=== PATIENT | female | born 1955 | race Caucasian/White ===

== ENCOUNTER 2019-07-05 12:15 | Emergency (ER) | payer OTHER, SELFPAY ==
--- OUTSIDE RECORDS SUMMARY | 2019-07-05 12:17 | XMS REPORT ---
:1955 Author Organization eClinicalWorks Care Team Providers Name Role Phone Nena Martinez Provider Role Unavailable Allergies No Known Allergies Problems Problem Type Condition Code Onset Dates Condition Status Problem History of CVA (cerebrovascular Z86.73 Active accident) Problem Mixed hyperlipidemia E78.2 Active Problem Screening for osteoporosis Z13.820 Active Problem History of stroke Z86.73 Active Problem Screening for breast cancer Z12.39 Active Problem Depression F32.9 Active Problem HTN (hypertension) I10 Active Problem Encounter for general adult medical Z00.00 Active examination without abnormal findings Problem Diabetes E11.9 Active Medications No Known Medications Results No Known Results Summary Purpose eClinicalPlastio Submission
--- OUTSIDE RECORDS SUMMARY | 2019-07-05 12:17 | XMS REPORT ---
:1955 Author Organization eClinicalWorks Care Team Providers Name Role Phone Nena Martinez Provider Role Unavailable Allergies No Known Allergies Problems Problem Type Condition Code Onset Dates Condition Status Problem History of CVA (cerebrovascular Z86.73 Active accident) Problem Mixed hyperlipidemia E78.2 Active Assessment HTN (hypertension) I10 Active Problem Screening for osteoporosis Z13.820 Active Problem History of stroke Z86.73 Active Problem Screening for breast cancer Z12.39 Active Problem Depression F32.9 Active Problem HTN (hypertension) I10 Active Problem Encounter for general adult medical Z00.00 Active examination without abnormal findings Problem Diabetes E11.9 Active Medications Medication Code Code Instructions Start End Status Dosage System Date Date Duloxetine HCl [facility] 06458809525 60 MG Orally Active 1 capsule Once a day Lisinopril [facility] 74078191331 20 MG Orally Active 1 tablet Twice a day Results No Known Results Summary Purpose eClinicalWorks Submission
--- OUTSIDE RECORDS SUMMARY | 2019-07-05 12:17 | XMS REPORT ---
[...] Medications Results No Known Results Summary Purpose eClinicalTribeHired Submission
--- OUTSIDE RECORDS SUMMARY | 2019-07-05 12:17 | XMS REPORT ---
:1955 Author Organization eClinicalWorks Care Team Providers Name Role Phone Nean Martinez Provider Role Unavailable Allergies, Adverse Reactions, Alerts Substance Reaction Event Type statin N/V Drug Allergy Problems Problem Type Condition Code Onset Dates Condition Status Problem History of CVA (cerebrovascular Z86.73 Active accident) Problem Mixed hyperlipidemia E78.2 Active Assessment Encounter for immunization Z23 Active Problem Screening for osteoporosis Z13.820 Active Problem History of stroke Z86.73 Active Problem Screening for breast cancer Z12.39 Active Problem Depression F32.9 Active Problem HTN (hypertension) I10 Active Problem Encounter for general adult medical Z00.00 Active examination without abnormal findings Problem Diabetes E11.9 Active Medications Medication Code Code Instructions Start End Status Dosage System Date Date Lisinopril [facility] 78524739297 20 MG Orally Active 1 tablet Twice a day Duloxetine HCl [facility] 62686032551 60 MG Orally Active 1 capsule Once a day Tradjenta [facility] 81181783191 5 MG Orally October 29, Active 1 tablet Once a day 2018 Tresiba [facility] 25363903414 200 UNIT/ML Dec 19, Active 40 units FlexTouch Subcutaneous 2019 daily Rosuvastatin ND 14804387712 20 MG Orally Dec 19, Active 1 tablet Calcium Once a day 2019 Results No Known Results Summary Purpose eClinicalWorks Submission
--- OUTSIDE RECORDS SUMMARY | 2019-07-05 12:17 | XMS REPORT ---
:1955 Author Organization eClinicalWorks Care Team Providers Name Role Phone Nena Martinez Provider Role Unavailable Allergies, Adverse Reactions, Alerts Substance Reaction Event Type statin N/V Drug Allergy Problems Problem Type Condition Code Onset Dates Condition Status Problem History of CVA (cerebrovascular Z86.73 Active accident) Problem Mixed hyperlipidemia E78.2 Active Assessment HTN (hypertension) I10 Active Assessment Diabetes E11.9 Active Problem Screening for osteoporosis Z13.820 Active Problem History of stroke Z86.73 Active Problem Screening for breast cancer Z12.39 Active Problem Depression F32.9 Active Problem HTN (hypertension) I10 Active Problem Encounter for general adult medical Z00.00 Active examination without abnormal findings Problem Diabetes E11.9 Active Medications Medication Code Code Instructions Start End Status Dosage System Date Date Tradjenta [facility] 53848992442 5 MG Orally October 29, Active 1 tablet Once a day 2018 Duloxetine HCl [facility] 48332972375 60 MG Orally Active 1 capsule Once a day Tresiba ND 82806259147 200 UNIT/ML Dec 19, Active 40 units FlexTouch Subcutaneous 2019 daily Lisinopril [facility] 72041796881 20 MG Orally Active 1 tablet Twice a day Rosuvastatin ND 30968612657 20 MG Orally Dec 19, Active 1 tablet Calcium Once a day 2019 Results No Known Results Summary Purpose eClinicalWorks Submission
[2019-07-05 12:59] LABS: Absolute Lymphocytes (CBC) 1.9 K/uL (0.7-4.9); Basophils % 0.7 % (0-1.3); Hematocrit 37.6 % (36.0-45.0); Lymphocytes % 21.5 % (15.3-44.8); MPV 7.3 fL (7.6-11.3); RBC Red Blood Cell Count 4.25 M/uL (3.86-4.86)
[2019-07-05 13:12] LABS: BUN Blood Urea Nitrogen 15 mg/dL (7-18); Bicarbonate 27 mmol/L (21-32); Glucose Level 289 mg/dL (74-106); Potassium 3.9 mmol/L (3.5-5.1); Sodium Level 136 mmol/L (136-145); Troponin (Emerg Dept Use Only) < 0.02 ng/mL (0.0-0.045)
--- NOTE | 2019-07-05 13:15 | RAD REPORT ---
EXAM DESCRIPTION: CT - Ct Stroke Brain Wo Cont - 07/05/2019 12:52 pm CLINICAL HISTORY: numbness, hemianopsia, left-sided symptoms, history of hypertension and prior CVA COMPARISON: Head Brain Wo Cont dated 02/28/2017 TECHNIQUE: Axial 5 millimeter thick images of the head were obtained without IV contrast. All CT scans are performed using dose optimization technique as appropriate and may include automated exposure control or mA/KV adjustment according to patient size. FINDINGS: No intracranial hemorrhage, mass, or cerebral edema. Diminished attenuation is present in the medial right occipital lobe. This would be compatible with CVA related visual field defects. Echo ent has a baseline mild atrophy matching comparison. Chronic ischemic changes also present. Elsewhere smith matter white matter differentiation is preserved. No globe or orbital content abnormality. Visualized portions of the mastoid air cells, paranasal sinuses, and orbits are unremarkable. Findings telephoned to the referring physician 1310 hours. IMPRESSION: Acute nonhemorrhagic infarction in the medial right occipital lobe. This is approximatel y 3 x 1.5 cm in size. There is no significant edema or mass effect from this CVA. Patient has atrophy, chronic ischemic change and old infarction changes that match comparison.
--- NOTE | 2019-07-05 13:29 | ER ---
Nurse's Notes [facility] Name: Rosaline Casey Age: 63 yrs Sex: Female : 1955 Arrival Date: 07/05/2019 Time: 12:24 Bed 20 Private MD: Diagnosis: Acute, nonhemorrhagic, right occipital cerebral infarction;Visual field defects;Paresthesia of skin Presentation: 07/05 12:12 Presenting complaint: EMS states: Pt. is A \T\ O x 4, SCS 15. C/o numbness to the left rb1 side of her face and left hand. Vision is blurred in the left eye. History of diabetes, HTN, CVA, neuropathy. She is hypertensive, reports being out of her Lisinopril for a while and just got a prescription again. BS 313, reports that she had chocolate milk this morning, SR on 12-Lead. 12:12 Transition of care: patient was not received from another setting of care. Onset of rb1 symptoms was July 04, 2019. Risk Assessment: Do you want to hurt yourself or someone else? Patient reports no desire to harm self or others. 12:12 Method Of Arrival: EMS: [facility] rb1 12:12 Acuity: FARIHA 3 rb1 12:12 Care prior to arrival: None. rb1 12:12 Initial Sepsis Screen: Does the patient meet any 2 criteria? No. Patient's initial rb1 sepsis screen is negative. Does the patient have a suspected source of infection? No. Patient's initial sepsis screen is negative. Triage Assessment: 12:12 General: Appears in no apparent distress. comfortable, Behavior is calm, cooperative, rb1 Denies fever. Pain: Denies pain. Neuro: Level of Consciousness is awake, alert, obeys commands, Oriented to person, place, time, situation, Recruiting Associate are equal bilaterally Moves all extremities. Gait is unsteady, According to pt. report. Speech is normal, Facial symmetry appears normal, Pupils are PERRLA, Reports blurred vision in left eye since 1300 yesterday numbness in left side of face and left hand. Cardiovascular: Capillary refill < 3 seconds is brisk in bilateral fingers. Respiratory: Airway is patent Respiratory effort is even, unlabored, Respiratory pattern is regular, symmetrical, Denies cough, shortness of breath. GI: No signs and/or symptoms were reported involving the gastrointestinal system. : No signs and/or symptoms were reported regarding the genitourinary system. Derm: Skin is pink, warm \T\ dry. Musculoskeletal: Range of motion: intact in all extremities. Historical: - Allergies: 12:12 No Known Allergies; rb1 - Home Meds: 12:12 glimepiride 2 mg Oral tab 1 tab once daily [Active]; labetalol Oral daily [Active]; rb1 lisinopril Oral 1 tab once daily [Active]; Insulin [Active]; - PMHx: 12:12 Diabetes - NIDDM; Hypertension; rb1 - PSHx: 12:12 ; Cholecystectomy; Hysterectomy; rb1 - Immunization history:: Adult Immunizations up to date. - Coronavirus screen:: The patient has NOT traveled to [place] in the past 14 days. The patient has NOT had contact with known/suspected case of Coronavirus?. - Social history:: Smoking status: Patient/guardian denies using. - Family history:: not pertinent. - Ebola Screening: : Patient negative for fever greater than or equal to 101.5 degrees Fahrenheit, and additional compatible Ebola Virus Disease symptoms. - Hospitalizations: : No recent hospitalization is reported. Screenin:12 Abuse screen: Denies threats or abuse. Nutritional screening: No deficits noted. rb1 Tuberculosis screening: No symptoms or risk factors identified. 12:12 Fall Risk No fall in past 12 months (0 pts). Secondary diagnosis (15 points) CVA, IV rb1 access (20 points). Ambulatory Aid- None/Bed Rest/Nurse Assist (0 pts). Gait- Normal/Bed Rest/Wheelchair (0 pts) Mental Status- Oriented to own ability (0 pts). Total Julio Fall Scale indicates Low Risk Score (25-44 pts). Fall prevention measures have been instituted. Side Rails Up X 2 Placed close to Nursing Station 1:1 attendant Assigned to Pt. Frequent Obs/Assesments occuring As available Patient and Family Educated on Fall Prevention Program and strategies. 12:12 VAN Screening: Arm Drift: Patient shows no arm weakness. Patient is VAN negative. rb1 12:44 Patient has been NPO before screening. The patient is alert, able to follow commands. rb1 The patient does not exhibit slurred or garbled speech The patient is not exhibiting difficulty speaking. The patient does not exhibit difficulty understanding words. The patient is able to swallow own secretions with no drooling or need for suction. Patient tolerated one teaspoon of water. No drooling, immediate coughing, gurgling, or clearing of the throat was noted. The patient tolerated 90mL of water. No drooling, immediate coughing, gurgling, or clearing of the throat was noted. The patient passed the bedside swallow screening. Oral medications may be given as ordered. Contact Physician for further diet orders. Provider notified of bedside swallow screening results: Bassam La MD. Assessment: 12:12 General: See triage assessment. rb1 13:10 Reassessment: Patient appears in no apparent distress at this time. Patient and/or rb1 family updated on plan of care and expected duration. Pain level reassessed. Patient is alert, oriented x 3, equal unlabored respirations, skin warm/dry/pink. Patient denies pain at this time. 14:09 Reassessment: Patient appears in no apparent distress at this time. No changes from rb1 previously documented assessment. Friends at the bedside. Patient denies pain at this time. 14:16 Reassessment: Called report to CAPRICE Dubon at [facility]. Information from the [facility] was rb1 given. All questions asked and answered. 15:00 Reassessment: Patient appears in no apparent distress at this time. Patient and/or rb1 family updated on plan of care and expected duration. Pain level reassessed. Patient is alert, oriented x 3, equal unlabored respirations, skin warm/dry/pink. Patient denies pain at this time. 16:00 Reassessment: Patient appears in no apparent distress at this time. No changes from rb1 previously documented assessment. Patient is alert, oriented x 3, equal unlabored respirations, skin warm/dry/pink. Pt. is laughing and talking with EMS. Vital Signs: 12:12 BP 172 / 77; Pulse 81; Resp 17; Temp 98.3(O); Pulse Ox 100% on R/A; Weight 79.38 kg rb1 (R); Height 5 ft. 2 in. (157.48 cm) (R); Pain 0/10; 13:10 BP 168 / 79; Pulse 79; Resp 18; Pulse Ox 100% on R/A; Pain 0/10; rb1 14:06 BP 166 / 81; Pulse 73; Resp 17; Temp 98.3(O); Pulse Ox 99% on R/A; Pain 0/10; rb1 15:00 BP 169 / 89; Pulse 71; Resp 15; Pulse Ox 98% ; rb1 15:57 BP 149 / 81; Pulse 68; Resp 12; Pulse Ox 97% on R/A; rb1 12:12 Body Mass Index 32.01 (79.38 kg, 157.48 cm) rb1 Trauma Score (Adult): 12:15 Eye Response: spontaneous(1); Verbal Response: oriented(1); Motor Response: obeys rb1 commands(2); Systolic BP: > 89 mm Hg(4); Respiratory Rate: 10 to 29 per min(4); Conway Score: 15; Trauma Score: 12 12:30 Eye Response: spontaneous(1); Verbal Response: oriented(1); Motor Response: obeys rb1 commands(2); Systolic BP: > 89 mm Hg(4); Respiratory Rate: 10 to 29 per min(4); Racheal Score: 15; Trauma Score: 12 12:45 Eye Response: spontaneous(1); Verbal Response: oriented(1); Motor Response: obeys rb1 commands(2); Systolic BP: > 89 mm Hg(4); Respiratory Rate: 10 to 29 per min(4); Conway Score: 15; Trauma Score: 12 13:00 Eye Response: spontaneous(1); Verbal Response: oriented(1); Motor Response: obeys rb1 commands(2); Systolic BP: > 89 mm Hg(4); Respiratory Rate: 10 to 29 per min(4); Conway Score: 15; Trauma Score: 12 13:15 Eye Response: spontaneous(1); Verbal Response: oriented(1); Motor Response: obeys rb1 commands(2); Systolic BP: > 89 mm Hg(4); Respiratory Rate: 10 to 29 per min(4); Conway Score: 15; Trauma Score: 12 14:15 Eye Response: spontaneous(1); Verbal Response: oriented(1); Motor Response: obeys rb1 commands(2); Systolic BP: > 89 mm Hg(4); Respiratory Rate: 10 to 29 per min(4); Conway Score: 15; Trauma Score: 12 15:15 Eye Response: spontaneous(1); Verbal Response: oriented(1); Motor Response: obeys rb1 commands(2); Systolic BP: > 89 mm Hg(4); Respiratory Rate: 10 to 29 per min(4); Racheal Score: 15; Trauma Score: 12 16:00 Eye Response: spontaneous(1); Verbal Response: oriented(1); Motor Response: obeys rb1 commands(2); Systolic BP: > 89 mm Hg(4); Respiratory Rate: 10 to 29 per min(4); Racheal Score: 15; Trauma Score: 12 NIH Stroke Scale Scores: 12:12 NIHSS Score: 2 rb1 ED Course: 12:12 Arm band placed on right wrist. rb1 12:12 Patient has correct armband on for positive identification. Bed in low position. Call rb1 light in reach. Side rails up X2. ekg monitor tech on. Pulse ox on. NIBP on. Warm blanket given. 12:24 Patient arrived in ED. rn 12:24 Bassam La MD is Attending Physician. rn 12:24 Maintain EMS IV. Dressing intact. Good blood return noted. Site clean \T\ dry. Gauge \T\ rb 1 site: 20 G L AC. 12:27 Tami Castellanos, RN is Primary Nurse. rb1 12:31 Triage completed. rb1 12:38 EKG done, by ED staff, reviewed by Bassam La MD. em1 12:53 CT completed. Patient tolerated procedure well. Patient moved back from CT. mw3 16:02 No provider procedures requiring assistance completed. Patient transferred, IV remains rb1 in place. Administered Medications: 13:56 Drug: PlaVIX 75 mg Route: PO; rb1 14:22 Follow up: Response: No adverse reaction rb1 Outcome: 13:26 ER care complete, transfer ordered by . rn 16:02 Transferred by ground EMS to [facility], Transfer form completed. rb1 16:02 Condition: stable 16:02 Instructed on the need for transfer. 16:06 Patient left the ED. rb1 NIH Stroke Scale - NIH Stroke Score Date: 07/05/2019 Time: 12:12 Total Score = 2 1a. Level of Consciousness (LOC) - 0(Alert) 1b. Level of Consciousness (LOC) (Year \T\ Age) - 0(Both) 1c. LOC Commands (Open \T\ Closes Eyes/Emergency Department Coordinator) - 0(Both) 2. Best Gaze (Lateral Gaze Paresis) - 0(Normal) 3. Visual Field Loss - 1(Partial hemianopia) 4. Facial Palsy - 0(Normal) 5a. Left Arm: Motor (10-second hold) - 0(No drift) 5b. Right Arm: Motor (10-second hold) - 0(No drift) 6a. Left Leg: Motor (5-second hold - always test supine) - 0(No drift) 6b. Right Leg: Motor (5-second hold - always test supine) - 0(No drift) 7. Limb Ataxia (finger/nose \T\ heel/clark - test with eyes open) - 0(Absent) 8. Sensory Loss (pinprick arms/legs/face) - 1(Mild to moderate loss) 9. Best Language: Aphasia (description/naming/reading) - 0(No aphasia) 10. Dysarthria (speech clarity - read or repeat words) - 0(Normal) 11. Extinction and Inattention (visual/tactile/auditory/spatial/personal) - 0(No abnormality) Initials: rb1 Signatures: Bassam aL MD MD rn Martinez, Eric em1 Tami Castellanos, RN RN rb1 Whitney Christensen mw3
--- NOTE | 2019-07-05 13:29 | EDPHYS ---
Physician Documentation [facility] Name: Rosaline Casey Age: 63 yrs Sex: Female : 1955 Arrival Date: 07/05/2019 Time: 12:24 Bed 20 Private MD: ED Physician Bassam La HPI: 07/05 13:16 This 63 yrs old Female presents to ER via EMS with complaints of Left sided rn numbness, vision problem. 13:16 The patient presents to the emergency department with paresthesias of the a vision rn problem, left visual field loss. Onset: The symptoms/episode began/occurred yesterday. Context:. Associated signs and symptoms: Pertinent positives: headache, visual field changes. Severity of symptoms: At their worst the symptoms were mild in the emergency department the symptoms are unchanged. The patient has experienced a previous episode. Reports CVA in past, does not take any blood thinners and has run out of her BP medication recently, presents with left upper/outer visual field defect and left sided numbness. Onset 1300 yesterday. . Historical: - Allergies: 12:12 No Known Allergies; rb1 - Home Meds: 12:12 glimepiride 2 mg Oral tab 1 tab once daily [Active]; labetalol Oral daily [Active]; rb1 lisinopril Oral 1 tab once daily [Active]; Insulin [Active]; - PMHx: 12:12 Diabetes - NIDDM; Hypertension; rb1 - PSHx: 12:12 ; Cholecystectomy; Hysterectomy; rb1 - Immunization history:: Adult Immunizations up to date. - Coronavirus screen:: The patient has NOT traveled to [place] in the past 14 days. The patient has NOT had contact with known/suspected case of Coronavirus?. - Social history:: Smoking status: Patient/guardian denies using. - Family history:: not pertinent. - Ebola Screening: : Patient negative for fever greater than or equal to 101.5 degrees Fahrenheit, and additional compatible Ebola Virus Disease symptoms. - Hospitalizations: : No recent hospitalization is reported. ROS: 13:16 Constitutional: Negative for fever, chills, and weight loss, Eyes: + left upper outer rn visual field deficit Neck: Negative for injury, pain, and swelling, Cardiovascular: Negative for chest pain, palpitations, and edema, Respiratory: Negative for shortness of breath, cough, wheezing, and pleuritic chest pain, Abdomen/GI: Negative for abdominal pain, nausea, vomiting, diarrhea, and constipation, MS/Extremity: Negative for injury and deformity, Skin: Negative for injury, rash, and discoloration, Neuro: + numbness left side of body, no weakness Exam: 13:16 Constitutional: This is a well developed, well nourished patient who is awake, alert, rn and in no acute distress. Head/Face: Normocephalic, atraumatic. Eyes: Pupils equal round and reactive to light, extra-ocular motions intact. + left upper outer visual field deficit, + LUE/LLE decreased sensation to sharp/painful touch. 5/5 strength throughout. Cardiovascular: Regular rate and rhythm. No pulse deficits. Respiratory: No increased work of breathing, no retractions or nasal flaring. Abdomen/GI: Soft, non-tender, with normal bowel sounds. No distension or tympany. No guarding or rebound. No evidence of tenderness throughout. MS/ Extremity: Pulses equal, no cyanosis. Neurovascular intact. Full, normal range of motion. Equal circumference. Neuro: Awake and alert, GCS 15, oriented to person, place, time, and situation. Motor strength 5/5 in all extremities. Vital Signs: 12:12 BP 172 / 77; Pulse 81; Resp 17; Temp 98.3(O); Pulse Ox 100% on R/A; Weight 79.38 kg rb1 (R); Height 5 ft. 2 in. (157.48 cm) (R); Pain 0/10; 13:10 BP 168 / 79; Pulse 79; Resp 18; Pulse Ox 100% on R/A; Pain 0/10; rb1 14:06 BP 166 / 81; Pulse 73; Resp 17; Temp 98.3(O); Pulse Ox 99% on R/A; Pain 0/10; rb1 15:00 BP 169 / 89; Pulse 71; Resp 15; Pulse Ox 98% ; rb1 15:57 BP 149 / 81; Pulse 68; Resp 12; Pulse Ox 97% on R/A; rb1 12:12 Body Mass Index 32.01 (79.38 kg, 157.48 cm) rb1 NIH Stroke Scale Scores: 12:12 NIHSS Score: 2 rb1 Trauma Score (Adult): 12:15 Eye Response: spontaneous(1); Verbal Response: oriented(1); Motor Response: obeys rb1 commands(2); Systolic BP: > 89 mm Hg(4); Respiratory Rate: 10 to 29 per min(4); Hudson Score: 15; Trauma Score: 12 12:30 Eye Response: spontaneous(1); Verbal Response: oriented(1); Motor Response: obeys rb1 commands(2); Systolic BP: > 89 mm Hg(4); Respiratory Rate: 10 to 29 per min(4); Hudson Score: 15; Trauma Score: 12 12:45 Eye Response: spontaneous(1); Verbal Response: oriented(1); Motor Response: obeys rb1 commands(2); Systolic BP: > 89 mm Hg(4); Respiratory Rate: 10 to 29 per min(4); Racheal Score: 15; Trauma Score: 12 13:00 Eye Response: spontaneous(1); Verbal Response: oriented(1); Motor Response: obeys rb1 commands(2); Systolic BP: > 89 mm Hg(4); Respiratory Rate: 10 to 29 per min(4); Hudson Score: 15; Trauma Score: 12 13:15 Eye Response: spontaneous(1); Verbal Response: oriented(1); Motor Response: obeys rb1 commands(2); Systolic BP: > 89 mm Hg(4); Respiratory Rate: 10 to 29 per min(4); Hudson Score: 15; Trauma Score: 12 14:15 Eye Response: spontaneous(1); Verbal Response: oriented(1); Motor Response: obeys rb1 commands(2); Systolic BP: > 89 mm Hg(4); Respiratory Rate: 10 to 29 per min(4); Hudson Score: 15; Trauma Score: 12 15:15 Eye Response: spontaneous(1); Verbal Response: oriented(1); Motor Response: obeys rb1 commands(2); Systolic BP: > 89 mm Hg(4); Respiratory Rate: 10 to 29 per min(4); Racheal Score: 15; Trauma Score: 12 16:00 Eye Response: spontaneous(1); Verbal Response: oriented(1); Motor Response: obeys rb1 commands(2); Systolic BP: > 89 mm Hg(4); Respiratory Rate: 10 to 29 per min(4); Hudson Score: 15; Trauma Score: 12 MDM: 12:24 Patient medically screened. rn 13:24 Data reviewed: vital signs, nurses notes, lab test result(s), radiologic studies, CT rn scan, and as a result, I will admit patient. Counseling: I had a detailed discussion with the patient and/or guardian regarding: the historical points, exam findings, and any diagnostic results supporting the discharge/admit diagnosis, lab results, radiology results, the need to transfer to another facility, for higher level of care, [facility] does not immediately have the required specialist. Response to treatment: There is no appreciated change of the patient's symptoms at this time. ED course: Pt with right sided occipital acute non-hemorrhagic CVA, will transfer to [facility] given no neuro or MRI capability here at this hospital. . 07/05 12:25 Order name: Troponin (emerg Dept Use Only) rn 07/05 12:25 Order name: Basic Metabolic Panel rn 07/05 12:25 Order name: CBC with Diff rn 07/05 12:25 Order name: Protime (+inr) rn 07/05 12:25 Order name: Ptt, Activated rn 07/05 12:59 Order name: Glucose, Ancillary Testing; Complete Time: 13:28 EDMS 07/05 12:25 Order name: CT Stroke Brain w/o Contrast rn 07/05 12:25 Order name: Stroke CXR 1 View rn 07/05 13:13 Order name: Basic Metabolic Panel; Complete Time: 13:28 EDMS 07/05 13:13 Order name: Troponin (Emerg Dept Use Only); Complete Time: 13:28 EDMS 07/05 13:13 Order name: CBC with Automated Diff; Complete Time: 13:28 EDMS 07/05 13:13 Order name: Protime (+INR); Complete Time: 13:28 EDMS 07/05 13:13 Order name: PTT, Activated Partial Thromb; Complete Time: 13:28 EDMS 07/05 13:26 Order name: CT; Complete Time: 13:28 EDMS 07/05 12:25 Order name: EKG; Complete Time: 12:26 rn 07/05 12:25 Order name: Accucheck; Complete Time: 13:57 rn 07/05 12:25 Order name: Cardiac monitoring; Complete Time: 12:41 rn 07/05 12:25 Order name: EKG - Nurse/Tech; Complete Time: 12:37 rn 07/05 12:25 Order name: IV Saline Lock; Complete Time: 12:41 rn 07/05 12:25 Order name: Labs collected and sent; Complete Time: 13:57 rn 07/05 12:25 Order name: NPO; Complete Time: 13:57 rn 07/05 12:25 Order name: O2 Per Protocol; Complete Time: 12:41 rn 07/05 12:25 Order name: O2 Sat Monitoring; Complete Time: 12:41 rn 07/05 12:25 Order name: Stroke Swallow Screen; Complete Time: 13:57 rn 07/05 14:23 Order name: RAD EDMS Administered Medications: 13:56 Drug: PlaVIX 75 mg Route: PO; rb1 14:22 Follow up: Response: No adverse reaction rb1 Disposition: 07/05/19 13:26 Transfer ordered to [facility]. Diagnosis are Acute, nonhemorrhagic, right occipital cerebral infarction, Visual field defects, Paresthesia of skin. - Reason for transfer: Higher level of care. - Accepting physician is . - Condition is Stable. - Problem is new. - Symptoms are unchanged. NIH Stroke Scale - NIH Stroke Score Date: 07/05/2019 Time: 12:12 Total Score = 2 1a. Level of Consciousness (LOC) - 0(Alert) 1b. Level of Consciousness (LOC) (Year \T\ Age) - 0(Both) 1c. LOC Commands (Open \T\ Closes Eyes/Hot Die Press Operator) - 0(Both) 2. Best Gaze (Lateral Gaze Paresis) - 0(Normal) 3. Visual Field Loss - 1(Partial hemianopia) 4. Facial Palsy - 0(Normal) 5a. Left Arm: Motor (10-second hold) - 0(No drift) 5b. Right Arm: Motor (10-second hold) - 0(No drift) 6a. Left Leg: Motor (5-second hold - always test supine) - 0(No drift) 6b. Right Leg: Motor (5-second hold - always test supine) - 0(No drift) 7. Limb Ataxia (finger/nose \T\ heel/clark - test with eyes open) - 0(Absent) 8. Sensory Loss (pinprick arms/legs/face) - 1(Mild to moderate loss) 9. Best Language: Aphasia (description/naming/reading) - 0(No aphasia) 10. Dysarthria (speech clarity - read or repeat words) - 0(Normal) 11. Extinction and Inattention (visual/tactile/auditory/spatial/personal) - 0(No abnormality) Initials: rb1 Signatures: Dispatcher [employer] Bassam Fraser MD MD rn Barber, Rebecca, RN RN rb1 Corrections: (The following items were deleted from the chart) 13:19 13:16 Reports CVA in past, does not take any blood thinners and has run out of rn her BP medication recently, presents with left upper/outer visual field defect and left sided numbness. . rn 16:06 13:26 07/05/2019 13:26 Transfer ordered to [address] Diagnosis is Acute, nonhemorrhagic, right occipital cerebral infarction; Visual field defects; Paresthesia of skin. Reason for transfer: Higher level of care. Accepting physician is . Condition is Stable. Problem is new. Symptoms are unchanged. rn
--- NOTE | 2019-07-05 13:55 | RAD REPORT ---
EXAM DESCRIPTION: RAD - Chest Single View - 07/05/2019 1:15 pm CLINICAL HISTORY: CVAcode stroke chest film COMPARISON: Chest Single View dated 02/28/2017 TECHNIQUE: AP portable chest image was obtained 07/05/2019 1:15 pm . FINDINGS: Lungs are clear. Lung markings match comparison. Heart and vasculature are normal. No anaya urable pleural effusion and no pneumothorax. No acute bony abnormality seen. No acute aortic findings suspected. IMPRESSION: No acute cardiopulmonary process.
[2019-07-05] MEDS ORDERED: CLOPIDOGREL 75 MG TABLET ONE (13:59)
[2019-07-05 16:23] VITALS: TEMP 98.3
[2019-07-05 16:26] VITALS: BP 149/81; O2SAT 97
--- NOTE | 2019-07-05 16:28 | EKG ---
Test Date: 2019-07-05 Test Time: 12:36:33 Store Facility Technician: MIRA MEASUREMENT RESULTS: Intervals: Rate: 77 MN: 160 QRSD: 78 QT: 406 QTc: 459 Dillon: P: 53 MN: 160 QRS: 3 T: -22 INTERPRETIVE STATEMENTS: Normal sinus rhythm Low voltage QRS Nonspecific ST and T wave abnormality Abnormal ECG Compared to ECG 02/28/2017 16:02:27 Low QRS voltage now present ST (T wave) deviation now present Electronically Signed On 07-05-19 16:27:14 SAND SHOVELER by Rodney Bernard
== END 2019-07-05 16:06 | disposition short-term general hospital (02) ==
LOC: ER 12:15
DX: I63.89 Other cerebral infarction (principal); R29.702 NIHSS score 2; R20.2 Paresthesia of skin; I69.398 Other sequelae of cerebral infarction; I10 Essential (primary) hypertension; E11.9 Type 2 diabetes mellitus without complications; Z79.4 Long term (current) use of insulin
CPT/HCPCS: 36415; 70450; 71045; 80048; 82947; 84484; 85025; 85610; 85730; 93005; 99285